=== PATIENT | male | born 2000 | race Caucasian/White ===

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

== ENCOUNTER 2021-04-06 15:18 | Outpatient (CLI) | payer OTHER ==
[2021-04-06 23:19] LABS: SARS-CoV-2 PCR by NAA Not Detected (NotDetected)
== END 2021-04-06 15:19 | disposition home or self-care (01) ==
LOC: LABBT 15:18
PROVIDERS: ATTEND Orthopaedic Surgery
DX: Z01.812 Encounter for preprocedural laboratory examination (principal); S72.91XA Unspecified fracture of right femur, initial encounter for closed fracture; Z20.822 Contact with and (suspected) exposure to COVID-19
CPT/HCPCS: U0003; U0005

== ENCOUNTER 2021-04-10 10:17 | Day surgery (SDC) | payer OTHER ==
[2021-04-05 15:58] VITALS: BMI 26.6
[2021-04-10] MEDS ORDERED: Fentanyl 250 MCG/5 ML VIAL ONE ×2 (12:00→14:44)
[2021-04-10] MEDS ORDERED: Midazolam HCl 2 mg/2 ml Vial ONE ×2 (12:20→12:33)
[2021-04-10] MEDS ORDERED: ceFAZolin Sodium (SDC) 2 GM/100 ML BAG ONE (12:37)
[2021-04-10] MEDS ORDERED: Lidocaine 1% PF 5 ML VIAL ONE (12:49)
[2021-04-10] MEDS ORDERED: Dexamethasone 20 MG/5 ML VIAL ONE (12:49)
[2021-04-10] MEDS ORDERED: PROPOFOL 200 MG/20 ML VIAL ONE (12:49)
[2021-04-10] MEDS ORDERED: Ondansetron PF 4 MG/2 ML Vial ONE (12:49)
[2021-04-10] MEDS ORDERED: PROPOFOL 20 ML ONE (12:58)
[2021-04-10] MEDS ORDERED: Bupivacaine PF 0.5% 30 ML VIAL ONE (13:22)
[2021-04-10] MEDS ORDERED: HYDROcodone/Acetaminophen 5/325 mg Tablet ONE (15:39)
== END 2021-04-10 16:30 | disposition home or self-care (01) ==
LOC: SDC 10:17
PROVIDERS: ATTEND Orthopaedic Surgery
PROC: 0QS806Z Reposition Right Femoral Shaft with Intramedullary Internal Fixation Device, Open Approach (ICD-10-PCS; principal; 2021-04-10)
DX: S72.351K Displaced comminuted fracture of shaft of right femur, subsequent encounter for closed fracture with nonunion (principal); Z91.048 Other nonmedicinal substance allergy status; V89.2XXD Person injured in unspecified motor-vehicle accident, traffic, subsequent encounter
CPT/HCPCS: 76000; C1713; J0690; J1100; J2250; J2405; J2704; J3010; S0020

== ENCOUNTER 2022-03-06 23:06 | Emergency (ER) | payer OTHER | END 2022-03-07 02:33 | disposition home or self-care (01) | LOC: ERS 23:06 | DX: L05.01 Pilonidal cyst with abscess (principal) | CPT/HCPCS: 99282 ==

== ENCOUNTER 2022-04-30 15:27 | Outpatient (CLI) | payer OTHER ==
[2022-04-30 16:07] LABS: #Eosinphils 0.1 10x3/uL (0.0-0.5); #Monocytes 0.6 10x3/uL (0.0-1.1); #Neutrophils 4.3 10x3/uL (1.5-8.4); %Basophils 0.4 % (0.0-2.0); %Lymphocytes 36.1 % (18.0-47.0); %Neutrophils 55.1 % (40.0-75.0); Hemoglobin 15.6 g/dL (13.5-17.5); Mean Corpuscular Hemoglobin 30.9 pg (27.0-33.0); Mean Corpuscular Volume 90.9 fl (81.2-95.1); Mean Platelet Volume 9.9 fl (7.4-10.4); Platelet Count 343 10x3/uL (150-450); RBC Distribution Width 11.3 % (11.5-14.5); Red Blood Cell (RBC) Count 5.05 10x6/uL (4.32-5.72); White Blood Cell (WBC) Count 7.9 10x3/uL (3.5-10.5)
[2022-04-30 16:37] LABS: Anion Gap 13 mmol/L (10-20); BUN (Urea Nitrogen) 16 mg/dL (8.9-20.6); Calc. Creatinine Clearance 0 mL/min (70-130); Calcium 9.8 mg/dL (7.8-10.44); Carbon Dioxide 25 mmol/L (22-29); Chloride 105 mmol/L (98-107); Estimated GFR 104; Glucose 94 mg/dL (70-105); Potassium 4.3 mmol/L (3.5-5.1); Sodium 139 mmol/L (136-145)
== END 2022-04-30 15:28 | disposition home or self-care (01) ==
LOC: LABBT 15:27
PROVIDERS: ATTEND Specialist
DX: Z01.812 Encounter for preprocedural laboratory examination (principal); L05.91 Pilonidal cyst without abscess
CPT/HCPCS: 80048; 85025

== ENCOUNTER 2022-05-02 11:06 | Day surgery (SDC) | payer OTHER ==
[2022-04-30 14:51] VITALS: BMI 30.4
[2022-05-02] MEDS ORDERED: Lidocaine 1% MPF 2 ML VIAL ONE (12:48)
[2022-05-02] MEDS ORDERED: metroNIDAZOLE 500 MG/100 ML BAG ONE (13:03)
[2022-05-02] MEDS ORDERED: Acetaminophen 500 MG TAB ONE (13:12)
[2022-05-02] MEDS ORDERED: Ketorolac Tromethamine 30 MG/ML VIAL ONE (13:12)
[2022-05-02] MEDS ORDERED: Clindamycin/D5W 600 mg/50 ml Premix Bag ONE (15:40)
== END 2022-05-02 18:00 | disposition home or self-care (01) ==
LOC: SDC 11:06
PROVIDERS: ATTEND Specialist
DX: L05.91 Pilonidal cyst without abscess (principal); Z53.9 Procedure and treatment not carried out, unspecified reason; Z79.899 Other long term (current) drug therapy; Z91.048 Other nonmedicinal substance allergy status
CPT/HCPCS: J1885; J3490

== ENCOUNTER 2022-05-06 05:42 | Inpatient (IN) | payer OTHER ==
[2022-05-06] MEDS ORDERED: Ketorolac Tromethamine 30 MG/ML VIAL ONE (06:07)
[2022-05-06] MEDS ORDERED: Acetaminophen 500 MG TAB ONE (06:07)
[2022-05-06] MEDS ORDERED: metroNIDAZOLE 500 MG/100 ML BAG ONE (06:21)
[2022-05-06] MEDS ORDERED: Dexmedetomidine 200 MCG/2 ML VIAL ONE (06:34)
[2022-05-06] MEDS ORDERED: fentaNYL PF 100 MCG/2 ML SYRINGE ONE (06:34)
[2022-05-06] MEDS ORDERED: Methylene Blue 50 MG/10 ML AMPUL ONE (06:37)
[2022-05-06] MEDS ORDERED: Bupivacaine HCl 0.5%/Epinephrine 1:200,000/PF 30 ml Vial ONE (06:37)
[2022-05-06] MEDS ORDERED: Clindamycin/D5W 600 mg/50 ml Premix Bag ONE (06:51)
[2022-05-06] MEDS ORDERED: Dexamethasone 20 MG/5 ML VIAL ONE (07:00)
[2022-05-06] MEDS ORDERED: Ondansetron PF 4 MG/2 ML Vial ONE (07:00)
[2022-05-06] MEDS ORDERED: Succinylcholine Chloride 100 MG/5 ML SYRINGE FS ONE (07:00)
[2022-05-06] MEDS ORDERED: PROPOFOL 200 MG/20 ML VIAL ONE (07:00)
[2022-05-06] MEDS ORDERED: ePHEDrine 50 MG/ML VIAL ONE (07:00)
[2022-05-06] MEDS ORDERED: Lidocaine 1% (PF) 30 ML VIAL ONE (08:01)
[2022-05-06] MEDS ORDERED: Ondansetron HCl/PF 4 MG/2 ML Vial IVP PRN (08:40)
[2022-05-06] MEDS ORDERED: diphenhydrAMINE 25 MG CAP PO PRN (08:40)
[2022-05-06] MEDS ORDERED: diphenhydrAMINE 50 MG/ML VIAL IM PRN (08:40)
[2022-05-06] MEDS ORDERED: Promethazine HCl 25 MG/ML VIAL IM PRN ×2 (08:40)
[2022-05-06] MEDS ORDERED: Naloxone HCl 0.4 mg/ml Vial IV PRN (08:40)
[2022-05-06] MEDS ORDERED: Zolpidem Tartrate 5 MG TAB PO PRN (08:40)
[2022-05-06] MEDS ORDERED: diphenhydrAMINE 50 MG/ML VIAL IVP PRN (08:40)
[2022-05-06] MEDS ORDERED: Ondansetron PF 4 MG/2 ML Vial IVP PRN (08:40)
[2022-05-06] MEDS ORDERED: Communication Order-Pharmacy FS SCH (08:45)
[2022-05-06] MEDS ORDERED: TETANUS, DIPHTHERIA TOX,ADULT (TDVAX) 0.5 ML VIAL IM ONE (08:46)
[2022-05-06] MEDS ORDERED: Morphine 4 MG/ML VIAL SLOW IVP PRN (08:46)
[2022-05-06] MEDS ORDERED: traMADol HCl 50 MG TAB PO PRN (08:46)
[2022-05-06] MEDS ORDERED: Sodium Chloride 0.45% 1,000 ML IV SCH (09:00)
[2022-05-06] MEDS ORDERED: FENTANYL 500 MCG/10 ML VIAL 2,000 MCG in Sodium Chloride 0.9% 60 ML IV SCH (09:00)
[2022-05-06] MEDS: Ketorolac Tromethamine 30 MG/ML VIAL IVP SCH ×2 (13:07→17:58)
[2022-05-07] MEDS: Ketorolac Tromethamine 30 MG/ML VIAL IVP SCH ×2 (00:01→05:54)
[2022-05-07 04:31] VITALS: TEMP 98.1
[2022-05-07 11:28] VITALS: BP 127/65
[2022-05-07 11:49] VITALS: BMI 33.5
== END 2022-05-07 12:15 | disposition home or self-care (01) | DRG 572 ==
LOC: SDC 05:42 → SURG A 09:49
PROVIDERS: ADMIT Specialist; ATTEND Specialist
PROC: 0JB90ZZ Excision of Buttock Subcutaneous Tissue and Fascia, Open Approach (ICD-10-PCS; principal; 2022-05-06)
DX: L05.91 Pilonidal cyst without abscess (principal); Z79.899 Other long term (current) drug therapy
CPT/HCPCS: 88304; 97139; J1100; J1885; J2001; J2405; J2704; J3010; J3490; Q9968